=== PATIENT | female | born 1990 | race African-American/Black ===

== ENCOUNTER 2025-01-11 10:40 | Outpatient (AMB) | payer OTHER, SELFPAY ==
[2025-01-11 10:41] VITALS: BP 108/66; PULSE 86; O2SAT 99; BMI 32.7
--- NOTE | 2025-01-11 10:41 | A.OFFVIS_ITS ---
Vital Signs 3 01/11/25 10:41 Height 5 ft 5 in Weight 196 lb 10.437 oz BMI 32.7 BP 108/66 Blood Pressure Location Lt brachial Position Sitting Pulse 86 Pulse Source Pulse Oximeter Pulse Oximetry (%) 99 Oxygen Delivery Method Room Air Intake Visit Reasons: Nontoxic single thyroid Intake Note: New patient present today for Nontoxic single thyroid. Promotions Firm Accounts Manager Required: No Accompanied by: Self / Same As Patient Allergies No Known Allergies Allergy (Verified 01/11/25 10:44) Medication List - Last Reconciled 01/11/25 by Suzan Mccrary MD medroxyprogesterone (Depo-Provera) 150 mg IM [id number] PNV [id number] 90 mg iron- 1 mg-200 mg 1 cap PO DAILY HPI Comments Details: 34-year-old female coming in today for initial evaluation of multinodular goiter. Palpated by PCP during physical exam. Ultrasound from October 2024, I do not have the images but reviewed the report which shows multiple bilateral nodules with a large 4 cm mixed cystic solid isoechoic TR 2 nodule in the right mid lobe, a left superior 2.9 cm mixed cystic solid isoechoic TR 2 nodule, a left mid lobe 2.5 cm mixed cystic solid isoechoic TR 2 nodule, and another left inferior 1.6 cm mixed cystic solid isoechoic TR 2 nodule. In the mid isthmus there is a 1.2 cm mixed cystic solid isoechoic TR 2 nodule, another lower isthmus 1.5 cm mixed cystic solid isoechoic TR 2 nodule. Patient currently denies heat or cold intolerance, diarrhea or constipation, hair loss, palpitation, anxiety, weight changes, mood changes, low energy, changes in appearance of eyes or vision changes, tremors, increased diaphoresis or dry skin. ? Patient denies any difficulty swallowing, pain on swallowing or voice changes or difficulty breathing. Feels anterior fullness in neck, feels it has grown bigger since Apr and May 2024 Post , gave July 2024, she is currently 4th , 1 miscarriage Patient denies any history of childhood neck radiation. Denies having ever used lithium, amiodarone or biotin supplements. Patient denies any family history of thyroid cancer or thyroid disease. Physical exam General: sitting comfortably in no acute distress HEENT: normocephalic/atraumatic Neck: large Goiter on exam Cardiac: normal heart sounds Pulm: normal breath sounds B/L, no added breath sounds Abd: not distended, no tenderness Extremities: no edema, no signs of myxedema Neuro: AAO x3, Speech: normal, no facial droop, moving all 4 extremities [facility] Medical History (Updated 12/28/24 @ 10:57 by Suzan Mccrary MD) Multinodular goiter Family History (Updated 01/11/25 @ 10:46 by ELISEO Segal) Mother Fibroid Father No problems noted. Social History (Updated 01/11/25 @ 10:45 by ELISEO Segal) Alcohol intake: never Patient Tobacco Use Status: Never used Tobacco Physical Exam Vital Signs: Last Vital Signs Pulse 86 01/11/25 10:41 BP 108/66 01/11/25 10:41 Pulse Ox 99 01/11/25 10:41 Oxygen Delivery Method Room Air 01/11/25 10:41 BMI result Body Mass Index 32.7 Assessment & Plan Assessment & Plan (1) Multinodular goiter: Code(s): E04.2 - Nontoxic multinodular goiter Category: Medical Plan: 34-year-old female with no family history of thyroid cancer with no personal history of head or neck radiation coming in today for initial evaluation of nontoxic multinodular goiter. Palpated by PCP during physical exam. Ultrasound from October 2024, I do not have the images but reviewed the report which shows multiple bilateral nodules with a large 4 cm mixed cystic solid isoechoic TR 2 nodule in the right mid lobe, a left superior 2.9 cm mixed cystic solid isoechoic TR 2 nodule, a left mid lobe 2.5 cm mixed cystic solid isoechoic TR 2 nodule, and another left inferior 1.6 cm mixed cystic solid isoechoic TR 2 nodule. In the mid isthmus there is a 1.2 cm mixed cystic solid isoechoic TR 2 nodule, another lower isthmus 1.5 cm mixed cystic solid isoechoic TR 2 nodule. She has a quite a large goiter on exam. Seems like it has been present for many years but she tells me she has only been having trouble with some pressure in her neck since early 2024. Even though her nodules are low risk appearing, I would say given the size at this time I would like to biopsy the 2 biggest once. She will probably need total thyroidectomy given the size of the goiter with some degree of compressive symptoms. But 1st I would like to do the biopsies. She is very apprehensive about the idea of surgery, she has a new baby. I told her that it might not be urgent to get the surgery, however I would definitely recommend especially given her young age, the size of the goiter plus compressive symptoms. I explained that it is common to have thyroid nodules. About 95% of the time these nodules are benign. However if the nodule is > 1 cm in size or suspicious on ultrasound then a fine need aspiration biopsy is recommended. We discussed that a FNAB involves 4-5 passes with a small gauge needle and material obtained is sent off for cytology.If the cytopathology is benign then the nodule will be followed annually with repeat ultrasounds. However if it is suspicious or malignant, we will need to discuss further management. Indeterminate cytology can be further investigated with repeat FNA, genetic testing or empiric lobectomy. Malignant cytology is managed with either lobectomy or total thyroidectomy. We discussed briefly that thyroid cancer is, in most patients, an indolent disease that does not affect mortality. We will arrange for FNA of the right mid 3.9 cm and the left superior 2.9 cm thyroid nodules at next available opening and patient will follow up with me in clinic thereafter for results and further decision making. Plan: -scheduled for FNA of the right mid 3.9 cm and the left superior 2.9 cm thyroid nodules and a follow up 2 weeks after to discuss results -ordered TSH and free T4 to be done today Plan I spent 45 minutes in reviewing the record, seeing the patient and documenting in the medical record. Orders: Orders 2 Thyroid Stimulating Hormone Today E04.2 - Nontoxic multinodular goiter Free T4 (Free Thyroxine) Today E04.2 - Nontoxic multinodular goiter US biopsy thyroid Today E04.2 - Nontoxic multinodular goiter Coding Level of Care Code New Pt Level 4 (58957) Diagnoses Multinodular goiter E04.2 Time Spent (min) 45
--- OUTSIDE RECORDS SUMMARY | 2025-01-11 11:32 | XMS_ITS | Clinical Summary ---
Author Organization [facility] ity Address [address] [place] [address] Care Team Providers Care Disabilities Services Officer Name Role Phone Unavailable Primary Care Provider Unavailabl e Social History Tobacco Use Types Packs/Day Years Used Date Smoking Tobacco: Never Assessed Comments Unknown Sex and Gender Information Value Date Recorded Sex Assigned at Not on file Legal Sex Female 2:19 AM EST Gender Identity Not on file Sexual Orientation Not on file Plan of Treatment Health Maintenance Due Date Last Done Comments DTaP,Tdap,and Td Vaccines (1 - Tdap) 2009 Hepatitis B Vaccines (1 of 3 - 19+ 3-dose series) 2009 Cervical Cancer Screening: P ap Smear 07/25/2011 COVID-19 Vaccine ( - 2023-2 5 season) 2024 HIV Screening 02/26/2024 Hepatitis C Screening 02/26/2024 Social Influencers of Health Screening 02/26/2024 Depression Screening 05/19/2024 Influenza Vaccine (#1) 2025 HIB Vaccines Aged Out No longer eligi ble based on patient's age to complete this topic HPV Vaccines Aged Out No longer eligi ble based on patient's age to complete this topic Hepatitis A Vaccines Aged Out No long er eligible based on patient's age to complete this topic IPV Vaccines Aged Out No longer eligi ble based on patient's age to complete this topic MMR Vaccines Aged Out No longer eligi ble based on patient's age to complete this topic Meningococcal ACWY Vaccine Aged Out N o longer eligible based on patient's age to complete this topic Meningococcal B Vaccine Aged Out No l onger eligible based on patient's age to complete this topic Pneumococcal Vaccine: Pediat rics (0 to 5 Years) and At-Risk Patients (6 to 49 Years) Aged Out No longer eligible b ased on patient's age to complete this topic RSV Immunization Patients Un [place] 20 months Aged Out No longer eligible b ased on patient's age to complete this topic Varicella Vaccines Aged Out No longer eligible based on patient's age to complete this topic
== END 2025-01-11 11:07 | disposition home or self-care (01) ==
LOC: HO.ENCR 10:40
PROVIDERS: PCP Internal Medicine; Visit Provider Student in an Organized Health Care Education/Training Program
DX: E04.2 Nontoxic multinodular goiter (principal)
CPT/HCPCS: 99204

== ENCOUNTER → 2025-01-11 10:40 | Outpatient (BNVA) | payer OTHER, SELFPAY | PROVIDERS: PCP Internal Medicine; Visit Provider Student in an Organized Health Care Education/Training Program | DX: E04.2 Nontoxic multinodular goiter (principal) | CPT/HCPCS: 99202 ==

== ENCOUNTER 2025-01-11 11:22 | Outpatient (REF) | payer OTHER, SELFPAY ==
[2025-01-11 14:03] LABS: Free T4 (Free Thyroxine) 1.09 ng/dL (0.71-1.85); Thyroid Stimulating Hormone 0.51 uIU/mL (0.32-4.0)
== END 2025-01-11 11:23 | disposition home or self-care (01) ==
LOC: HO.10HDL 11:22
PROVIDERS: Visit Provider Student in an Organized Health Care Education/Training Program
DX: E04.2 Nontoxic multinodular goiter (principal)
CPT/HCPCS: 36415; 84439; 84443

== ENCOUNTER 2025-01-19 09:53 | Outpatient (REF) | payer OTHER, SELFPAY ==
--- NOTE | 2025-01-19 10:32 | PCN2_ITS ---
Brief Operative Note Date of procedure: 01/19/25 Pre-op diagnosis: left superior 2.9 cm and right mid 3.9 cm thyroid nodule FNA biopsy Post-op diagnosis: same Procedure: THYROID FINE NEEDLE ASPIRATION PROCEDURE NOTE ? PROCEDURE PERFORMED: Ultrasound-guided FNA of thyroid nodule ? OPERATORS: Dr. Suzan Mccrary ? INDICATION: left superior 2.9 cm and right mid 3.9 cm thyroid nodules; FNA performed to assess for malignancy ? DESCRIPTION OF PROCEDURE: The indications for FNA (to assess for malignancy) were reviewed with the patient in detail. Potential complications (e.g., bleeding, infection, damage to local structures, absence of clear diagnosis after FNA) were reviewed. Alternatives to FNA including conservative observation or surgery were described. The patient understood and agreed to proceed. This was documented by the signing of the written informed consent form. A time-out was performed to confirm the patient's identity and the site of planned FNA. The nodules of interest were identified using ultrasound (14 MHz linear array probe). The sites of FNA were then draped in the usual fashion and carefully cleaned and prepared using alcohol swabs. The skin at the previously-identified sites of needle insertion were iced and sprayed with numbing spray. Most of the left side was a conglomerate of multiple nodules but we targeted the left superior part. So first for the left superior 2.9 cm thyroid nodule, under ultrasound guidance, _4_ passes were performed using a 1.5-inch, 25-gauge needle, and sample was obtained via capillary action. The needle tip was clearly visualized to be within the nodule at the time of sampling for _4_ of _4_ passes . Then for the right mid 3.9 cm thyroid nodule, Under ultrasound guidance, _4_ passes were performed using a 1.5-inch, 25-gauge needle, and sample was obtained via capillary action. The needle tip was clearly visualized to be within the nodule at the time of sampling for _4_ of _4_ passes. The patient tolerated the procedure well. There were no immediate complications. A small adhesive bandage was applied, and the patient was advised to take acetaminophen (rather than NSAIDs) for any discomfort and to report any signs of inflammation/infection or marked swelling. IMPRESSION: Technically successful ultrasound-guided fine needle aspiration of left superior 2.9 cm and right mid 3.9 cm thyroid nodules. PLAN: The patient was advised that I will provide follow-up regarding the cytology result and any subsequent plans. Suzan Mccrary MD Endocrinology Attending Condition: stable Disposition: same day
--- OUTSIDE RECORDS SUMMARY | 2025-01-19 11:04 | XMS_ITS | Clinical Summary ---
Author Organization [facility] ity Address [address] [place] [address] Care Team Providers Care Mold Construction Supervisor Name Role Phone Unavailable Primary Care Provider [...] Cervical Cancer Screening: P ap Smear 07/25/2011 HIV Screening 02/26/2024 Hepatitis C Screening 02/26/2024 Social Influencers of Health Screening 02/26/2024 Depression Screening 05/19/2024 COVID-19 Vaccine ( - 2023-2 5 season) 2025 Influenza Vaccine (#1) 2025 HIB Vaccines Aged [...]
== END 2025-01-19 09:54 | disposition home or self-care (01) ==
LOC: HO.US 09:53
PROVIDERS: PCP Internal Medicine; Visit Provider Student in an Organized Health Care Education/Training Program
DX: E04.2 Nontoxic multinodular goiter (principal)
CPT/HCPCS: 10005; 88173; 88305

== ENCOUNTER → 2025-01-19 09:53 | Outpatient (BNV) | payer OTHER, SELFPAY | PROVIDERS: PCP Internal Medicine; Visit Provider Student in an Organized Health Care Education/Training Program | DX: E04.2 Nontoxic multinodular goiter (principal) | CPT/HCPCS: 10005; 10006 ==

== ENCOUNTER 2025-02-02 13:04 | Outpatient (AMB) | payer OTHER, SELFPAY ==
[2025-02-02 13:06] VITALS: BP 106/66; PULSE 71; O2SAT 99; BMI 33.0
--- NOTE | 2025-02-02 13:06 | MHC.OFFVIS ---
Vital Signs 02/02/25 13:06 Height 5 ft 5 in Weight 198 lb 3.129 oz BMI 33.0 BP 106/66 Blood Pressure Location Lt brachial Position Sitting Pulse 71 Pulse Source Pulse Oximeter Pulse Oximetry (%) 99 Oxygen Delivery Method Room Air Intake Visit Reasons: F/u Biopsy FNA Intake Note: Patient present today for Biopsy FNA results. Preflight Mechanic Required: No Accompanied by: Self / Same As Patient Allergies No Known Allergies Allergy (Verified 02/02/25 13:09) Medication List - Last Reconciled 02/02/25 by Suzan Mccrary MD medroxyprogesterone (Depo-Provera) 150 mg IM [id number] PNV [id number] 90 mg iron- 1 mg-200 mg 1 cap PO DAILY HPI Comments Details: 34-year-old female coming in today for fup of multinodular goiter. Palpated by PCP during physical exam. Ultrasound from October 2024, I do not have the images but reviewed the report which shows multiple bilateral nodules with a large 4 cm mixed cystic solid isoechoic TR 2 nodule in the right mid lobe, a left superior 2.9 cm mixed cystic solid isoechoic TR 2 nodule, a left mid lobe 2.5 cm mixed cystic solid isoechoic TR 2 nodule, and another left inferior 1.6 cm mixed cystic solid isoechoic TR 2 nodule. In the mid isthmus there is a 1.2 cm mixed cystic solid isoechoic TR 2 nodule, another lower isthmus 1.5 cm mixed cystic solid isoechoic TR 2 nodule. Patient currently denies heat or cold intolerance, diarrhea or constipation, hair loss, palpitation, anxiety, weight changes, mood changes, low energy, changes in appearance of eyes or vision changes, tremors, increased diaphoresis or dry skin. ? Patient denies any difficulty swallowing, pain on swallowing or voice changes or difficulty breathing. Feels anterior fullness in neck, feels it has grown bigger since Apr and May 2024 Post , gave July 2024, she is currently 4th , 1 miscarriage Patient denies any history of childhood neck radiation. Denies having ever used lithium, amiodarone or biotin supplements. Patient denies any family history of thyroid cancer or thyroid disease. Interval history 01/11/2025: TSH and free T4 01/19/2025: Status post FNA of the right mid 3.9 cm and the left superior 2.9 cm thyroid nodules both of which came back with benign cytology, [place] category 2. Physical exam General: sitting comfortably in no acute distress HEENT: normocephalic/atraumatic Neck: large Goiter on exam Cardiac: normal heart sounds Pulm: normal breath sounds B/L, no added breath sounds Abd: not distended, no tenderness Extremities: no edema, no signs of myxedema Neuro: AAO x3, Speech: normal, no facial droop, moving all 4 extremities Laboratory Tests 01/11/25 11:25 TSH 0.51 Free T4 1.09 [facility] Medical History (Updated 12/28/24 @ 10:57 by Suzan Mccrary MD) Multinodular goiter Family History Mother Fibroid Father No problems noted. Social History Alcohol intake: never Patient Tobacco Use Status: Never used Tobacco Physical Exam Vital Signs: Last Vital Signs Pulse 71 02/02/25 13:06 BP 106/66 02/02/25 13:06 Pulse Ox 99 02/02/25 13:06 Oxygen Delivery Method Room Air 02/02/25 13:06 BMI result Body Mass Index 33.0 Assessment & Plan Assessment & Plan (1) Multinodular goiter: Code(s): E04.2 - Nontoxic multinodular goiter Category: Medical Plan: 34-year-old female with no family history of thyroid cancer with no personal history of head or neck radiation coming in today for fup of nontoxic multinodular goiter. Palpated by PCP during physical exam. Ultrasound from October 2024, I do not have the images but reviewed the report which shows multiple bilateral nodules with a large 4 cm mixed cystic solid isoechoic TR 2 nodule in the right mid lobe, a left superior 2.9 cm mixed cystic solid isoechoic TR 2 nodule, a left mid lobe 2.5 cm mixed cystic solid isoechoic TR 2 nodule, and another left inferior 1.6 cm mixed cystic solid isoechoic TR 2 nodule. In the mid isthmus there is a 1.2 cm mixed cystic solid isoechoic TR 2 nodule, another lower isthmus 1.5 cm mixed cystic solid isoechoic TR 2 nodule. She has a quite a large goiter on exam. Seems like it has been present for many years but she tells me she has only been having trouble with some pressure in her neck since early 2024. Status post FNA of the right mid 3.9 cm and the left superior 2.9 cm thyroid nodules both with benign cytology, [place] category 2. She will probably benefit from total thyroidectomy given the size of the goiter with some degree of compressive symptoms. She is very apprehensive about the idea of surgery, she has a new baby. I told her that it might not be urgent to get the surgery, however I would definitely recommend especially given her young age, the size of the goiter plus compressive symptoms. This time she would like to hold off on a surgical referral, in that case have asked her to follow up with me in 1 year with a repeat ultrasound on labs. Plan: -ordered ultrasound of the thyroid to be done in December 2025 prior to follow up in January 2026 -ordered TSH and free T4 to be done a few days prior to follow up in January 2026 Plan See above Orders: Orders US thyroid 12/26/25 E04.2 - Nontoxic multinodular goiter, E04.9 - Nontoxic goiter, unspecified Free T4 (Free Thyroxine) 12/26/25 E04.2 - Nontoxic multinodular goiter, E04.9 - Nontoxic goiter, unspecified Thyroid Stimulating Hormone 12/26/25 E04.2 - Nontoxic multinodular goiter, E04.9 - Nontoxic goiter, unspecified Patient Instructions: Do ultrasound of the thyroid in December 2025, someone will call you to schedule this, please make sure this is done prior to your next appointment with me in January 2026 Do thyroid blood work a few days prior to your next appointment with me in January 2026, orders have been placed. Follow up in January 2026 Coding Level of Care Code Est Pt Level 3 (57170) Diagnoses Multinodular goiter E04.2
== END 2025-02-02 13:25 | disposition home or self-care (01) ==
LOC: HO.ENCR 13:04
PROVIDERS: PCP Internal Medicine; Visit Provider Student in an Organized Health Care Education/Training Program
DX: E04.2 Nontoxic multinodular goiter (principal)
CPT/HCPCS: 99213

== ENCOUNTER → 2025-02-02 13:04 | Outpatient (BNVA) | payer OTHER, SELFPAY | PROVIDERS: PCP Internal Medicine; Visit Provider Student in an Organized Health Care Education/Training Program | DX: E04.2 Nontoxic multinodular goiter (principal) | CPT/HCPCS: 99212 ==